=== PATIENT | female | born 1955 | race Two or more races ===

== ENCOUNTER 2023-06-18 16:23 | Emergency (ER) | payer OTHER ==
[~2023-06-18] VITALS: Ht 172.7 cm; Wt 82.6 kg
[2023-06-18] MEDS ORDERED: ZESTRIL40 M1 (16:43)
[2023-06-18] MEDS ORDERED: HYDROCHLOROTH12.5 MG PO (16:44)
[2023-06-18] MEDS ORDERED: CEFTRIAXONE SODIUM 1,000 MG VIAL IM ONE (18:30)
[2023-06-18] MEDS ORDERED: KETOROLAC TROMETHAMINE 60 MG VIAL IM ONE (18:30)
[2023-06-18 20:00] LABS: URINE APPEARANCE Clear; URINE BILIRRUBIN Negative (NEGATIVE); URINE BLOOD Moderate; URINE COLOR Yellow; URINE GLUCOSE Negative (NEGATIVE); URINE LEUKOCYTE Large; URINE NITRATE Negative; URINE PROTEIN Negative (NEGATIVE); URINE UROBILINOGEN 0.2 E.U./dl
[2023-06-18 20:04] LABS: URINE BACTERIA 1664.3 uL (0.0-1933); URINE EPITHELIAL CELLS 10.6 uL (0.0-38.8); URINE RBC 6.4 uL (0.0-20.8)
== END 2023-06-18 20:12 | disposition home or self-care (01) ==
LOC: ER 16:24
PROVIDERS: Emergency Medicine
DX: N39.0 Urinary tract infection, site not specified (principal); I10 Essential (primary) hypertension
CPT/HCPCS: 36415; 96372; 99282; J0696; J1885